=== PATIENT | female | born 1985 | race Hispanic/Latino ===

== ENCOUNTER 2017-09-14 18:52 | Emergency (ER) | payer SELFPAY ==
[~2017-09-14 18:52] MED LIST: ISOVUE-370 76%-LOCM 1 ML ONE
[2017-09-14 21:32] LABS: #Basophils 0.1 thou/uL (0.0-0.2); #Eosinphils 0.1 thou/uL (0.0-0.7); #Lymphocytes 1.3 thou/uL (1.20-3.40); #Monocytes 0.5 thou/uL (0.11-0.59); #Neutrophils 4.9 thou/uL (1.40-6.50); %Basophils 0.9 % (0.0-1.0); %Eosinophils 1.2 % (0.0-10.0); %Lymphocytes 18.7 % (21.0-51.0); %Monocytes 7.3 % (0.0-10.0); Mean Platelet Volume 7.9 fL (7.4-10.4); Red Blood Cell (RBC) Count 4.39 mill/uL (4.20-5.40); White Blood Cell (WBC) Count 6.8 thou/uL (4.8-10.8)
[2017-09-14 21:53] LABS: ALT (SGPT) 13 U/L (8-55); AST (SGOT) 13 U/L (5-34); Alkaline Phosphatase 80 U/L (40-150); Anion Gap 10 mmol/L (10-20); BUN (Urea Nitrogen) 11 mg/dL (7.0-18.7); Bilirubin, Total 0.3 mg/dL (0.2-1.2); Calc. Creatinine Clearance 0 mL/min (70-130); Calcium 9.3 mg/dL (7.8-10.44); Carbon Dioxide 25 mmol/L (22-29); Chloride 106 mmol/L (98-107); Estimated GFR-MDRD Greater than 90; Globulin 3.2 g/dL (2.4-3.5); Protein, Total 7.2 g/dL (6.0-8.3)
[2017-09-14] MEDS ORDERED: Ondansetron HCl/PF 4 MG/2 ML Vial ONE (22:19)
[2017-09-14] MEDS ORDERED: Morphine 4 MG/ML VIAL ONE ×2 (22:19→23:37)
--- NOTE | 2017-09-14 23:26 | CT ---
CT OF THE SOFT TISSUES OF THE NECK WITH IV CONTRAST 09/14/17 PROVIDED CLINICAL HISTORY: Neck pain. FINDINGS: There is asymmetric enlargement and somewhat patchy diminished attenuation involving the right subman dibular gland. There is noncircumscribed fluid densities seen within the subcutaneous and fat immedia tely surrounding the right submandibular gland extending into the parapharyngeal fat to the right of midline. The left submandibular gland and parotid glands appear unremarkable. There is no evidence of a sialolith. The oral cavity, hypopharynx, oropharynx and remainder of visualized aerodigestive tract appears unre markable. The epiglottis is not enlarged. The palatine tonsils appear normal. There is no evidence for regional lymph node enlargement. The visualized paranasal sinuses appear cami ar. The visualized globes and orbital contents appear unremarkable. the visualized portions of the elizabeth ng parenchyma appear clear. IMPRESSION: Findings compatible with acute right sialadenitis involving the submandibular gland. No evidence for a sialolith. POS: DANIEL
== END 2017-09-14 23:59 | disposition home or self-care (01) ==
LOC: ERS 18:52
DX: K11.20 Sialoadenitis, unspecified (principal)
CPT/HCPCS: 36415; 70492; 80053; 85025; 87081; 87430; 96361; 96374; 96375; 96376; J0696; J2270; J2405

== ENCOUNTER 2020-04-02 12:21 | Emergency (ER) | payer OTHER, SELFPAY ==
[2020-04-03 14:32] LABS: SARS-CoV-2 MS2 Positive; SARS-CoV-2 N Gene Negative; SARS-CoV-2 S Gene Negative; SARS-CoV-2 orf1ab Negative
== END 2020-04-02 13:15 | disposition home or self-care (01) ==
LOC: ERS 12:21
DX: R05 Cough (principal); R09.81 Nasal congestion; R51 Headache; R50.9 Fever, unspecified; R11.2 Nausea with vomiting, unspecified; R19.7 Diarrhea, unspecified; Z20.828 Contact with and (suspected) exposure to other viral communicable diseases
CPT/HCPCS: 87635; 99283; U0003

== ENCOUNTER 2021-02-12 21:48 | Emergency (ER) | payer BC, OTHER ==
[2021-02-13 11:06] LABS: SARS-CoV-2 PCR by NAA Not Detected (NotDetected)
== END 2021-02-12 23:27 | disposition home or self-care (01) ==
LOC: ERS 21:48
DX: J02.9 Acute pharyngitis, unspecified (principal); Z20.822 Contact with and (suspected) exposure to COVID-19
CPT/HCPCS: 71046; 87635; U0003; U0005